=== PATIENT | male | born 1970 | race Caucasian/White ===

== ENCOUNTER 2017-08-03 10:23 | Inpatient (IN) | payer MEDICAID, OTHER ==
[~2017-08-03] VITALS: Ht 193 cm; Wt 63.1 kg
[2017-08-03] MEDS ORDERED: SODIUM CHLORIDE 0.9% 1,000 ML IV ONE (10:32)
[2017-08-03] MEDS ORDERED: ACETAMINOPHEN 500 MG TABLET ONE (10:54)
[2017-08-03] MEDS ORDERED: MORPHINE SULFATE 4 MG/ML, 1ML ONE ×2 (10:55→20:47)
[2017-08-03] MEDS ORDERED: MORPHINE SULFATE 4 MG/ML, 1ML IVPush PRN (11:00)
[2017-08-03] MEDS ORDERED: SODIUM CHLORIDE FLUSH 10ML SYR IVF ONE (11:00)
[2017-08-03] MEDS ORDERED: SODIUM CHLORIDE 0.9% 1,000ML IVBOLUS ONE (11:00)
[2017-08-03] MEDS ORDERED: ACETAMINOPHEN 500 MG TABLET PO ONE (11:00)
[2017-08-03 11:04] LABS: MEAN CORPUSCULAR HEMOGLOBIN 29.3 pg (27.5-34.5); MEAN CORPUSCULAR HGB CONC 33.8 g/dL (33.2-36.2); MEAN CORPUSCULAR VOLUME 86.7 fL (81-97); MEAN PLATELET VOLUME 7.4 fL (7.4-10.4); PLATELET COUNT 165 x10^3/uL (130-400); RED BLOOD COUNT 4.11 x10^6/uL (4.38-5.82); RED CELL DISTRIBUTION WIDTH 13.8 % (9.4-14.8)
[2017-08-03 11:12] LABS: INTERNATIONAL NORMALIZED RATIO 1.15 (0.93-1.1); PROTHROMBIN TIME 11.8 Seconds (9.6-11.5)
[2017-08-03 11:15] LABS: ALANINE AMINOTRANSFERASE 11 U/L (12-78); ALBUMIN 2.4 g/dL (3.4-5.0); ANION GAP 12 mmol/L (5-15); CALCIUM 7.3 mg/dL (8.5-10.1); CHLORIDE 106 mmol/L (98-107); CREATININE 0.96 mg/dL (0.7-1.3)
[2017-08-03 11:17] LABS: MD YES
[2017-08-03 11:18] LABS: ALKALINE PHOSPHATASE 66 U/L (45-117); BILIRUBIN,TOTAL 0.8 mg/dL (0.2-1.0); TOTAL PROTEIN 6.5 g/dL (6.4-8.2)
[2017-08-03 11:20] LABS: BAND#(MANUAL) 2.38 x10^3/uL; BANDS%(MANUAL) 25 % (0-7); LYMPH#(MANUAL) 0.29 x10^3/uL (1-3.4); LYMPHS% (MANUAL) 3 % (22-44); METAMYELOCYTES# (MANUAL) 0.29 x10^3/uL (0-0); METAMYELOCYTES% (MANUAL) 3 % (0-1); MONOS#(MANUAL) 0.29 x10^3/uL (0.3-2.7); MONOS% (MANUAL) 3 % (2-9); MYELOCYTES# (MANUAL) 0.19 x10^3/uL (0-0); MYELOCYTES% (MANUAL) 2 % (0-0); SEG#(MANUAL) 6.08 x10^3/uL (1.8-6.8); SEGS% (MANUAL) 64 % (42-75)
[2017-08-03 11:21] LABS: <PLATELET ESTIMATE> ADEQUATE; <PLT MORPHOLOGY> NORMAL PLT MORPH; <RBC MORPHOLOGY> NORMAL
[2017-08-03] MEDS ORDERED: AZITHROMYCIN 500 MG in SODIUM CHLORIDE 0.9% 250 ML IV ONE (12:00)
[2017-08-03] MEDS ORDERED: CEFTRIAXONE PMX 2GM/50ML 50 ML IV SCH (12:00)
[2017-08-03] MEDS ORDERED: CEFTRIAXONE 2 GM in DEXTROSE 5% 100 ML IVPB ONE (12:00)
[2017-08-03] MEDS ORDERED: CEFTRIAXONE PMX 1GM/50ML 50 ML ONE ×2 (12:01→12:28)
[2017-08-03 14:00] VITALS: BP 106/72
[2017-08-03] MEDS ORDERED: LABETALOL 5MG/ML, 20ML IVPush PRN (14:00)
[2017-08-03] MEDS ORDERED: VANCOMYCIN PER PHARMACY MC PRN (14:00)
[2017-08-03] MEDS ORDERED: GUAIFENESIN/DM 200-20MG, 10ML UDC PO PRN (14:00)
[2017-08-03] MEDS ORDERED: BISACODYL 10 MG SUPP PR PRN (14:00)
[2017-08-03] MEDS ORDERED: ENALAPRILAT 1.25 MG/ML, 2ML IVPush PRN (14:00)
[2017-08-03 14:01] VITALS: BP 113/84
[2017-08-03] MEDS ORDERED: PHARMACOKINETIC CONSULTATION MC ONE (14:30)
[2017-08-03] MEDS ORDERED: PHARMACOKINETIC MONITORING MC PRN (14:30)
[2017-08-03] MEDS: LACTATED RINGERS 1,000 ML IV SCH (16:04)
[2017-08-03] MEDS: VANCOMYCIN 1,300 MG in SODIUM CHLORIDE 0.9% 250 ML IV SCH (16:05)
[2017-08-03] MEDS: NICOTINE 7 MG/24 HR PATCH.TD24 TD SCH (16:06)
[2017-08-03] MEDS: ENOXAPARIN 40 MG/0.4 ML SQ SCH (16:06)
[2017-08-03] MEDS: HYDROcodone/APAP 5/325 TABLET PO PRN (17:20)
[2017-08-03 17:55] LABS: CULTURE INDICATED? NO; MICROSCOPIC AUTO
[2017-08-03 18:01] LABS: AMPHETAMINE SCREEN, URINE Positive (Negative); BARBITURATE SCREEN, URINE Negative (Negative); BENZODIAZEPINE SCREEN, URINE Negative (Negative); CANNABINOID SCREEN, URINE Positive (Negative); COCAINE SCREEN, URINE Negative (Negative); METHADONE SCREEN, URINE Negative (Negative); OPIATE SCREEN, URINE Positive (Negative)
[2017-08-03 19:14] VITALS: BP 120/78
[2017-08-03] MEDS: morphine SULFATE 10 MG/ML, 1ML IVPush PRN (21:00)
[2017-08-03] MEDS: CEFEPIME 2 GM in DEXTROSE 5% 100 ML IV SCH (21:01)
[2017-08-04] MEDS: LACTATED RINGERS 1,000 ML IV SCH (02:30)
[2017-08-04 02:49] VITALS: BP 125/85
[2017-08-04] MEDS ORDERED: MORPHINE SULFATE 4 MG/ML, 1ML ONE ×2 (02:54→06:13)
[2017-08-04] MEDS: morphine SULFATE 10 MG/ML, 1ML IVPush PRN ×2 (03:00→06:18)
[2017-08-04] MEDS: VANCOMYCIN 1,300 MG in SODIUM CHLORIDE 0.9% 250 ML IV SCH ×2 (03:00→13:54)
[2017-08-04] MEDS: CEFEPIME 2 GM in DEXTROSE 5% 100 ML IV SCH ×2 (04:57→12:37)
[2017-08-04 05:27] LABS: MEAN CORPUSCULAR HEMOGLOBIN 29.3 pg (27.5-34.5); MEAN CORPUSCULAR HGB CONC 33.4 g/dL (33.2-36.2); MEAN CORPUSCULAR VOLUME 87.8 fL (81-97); MEAN PLATELET VOLUME 7.8 fL (7.4-10.4); PLATELET COUNT 107 x10^3/uL (130-400); RED CELL DISTRIBUTION WIDTH 13.8 % (9.4-14.8)
[2017-08-04 05:32] LABS: CHLORIDE 105 mmol/L (98-107)
[2017-08-04 05:43] LABS: ALANINE AMINOTRANSFERASE 10 U/L (12-78); ALBUMIN 2.2 g/dL (3.4-5.0); ALKALINE PHOSPHATASE 101 U/L (45-117); ANION GAP 9 mmol/L (5-15); BILIRUBIN,TOTAL 0.6 mg/dL (0.2-1.0); CALCIUM 7.5 mg/dL (8.5-10.1); CREATININE 0.86 mg/dL (0.7-1.3); TOTAL PROTEIN 6.6 g/dL (6.4-8.2)
[2017-08-04 06:25] LABS: MD YES
[2017-08-04 06:33] LABS: <PLATELET ESTIMATE> DECREASED; <RBC MORPHOLOGY> NORMAL; BAND#(MANUAL) 1.38 x10^3/uL; BANDS%(MANUAL) 20 % (0-7); LYMPHS% (MANUAL) 16 % (22-44); METAMYELOCYTES# (MANUAL) 0.14 x10^3/uL (0-0); METAMYELOCYTES% (MANUAL) 2 % (0-1); REACTIVE LYMPHS # (MANUAL) 0.14 x10^3/uL (0-0); REACTIVE LYMPHS % (MANUAL) 2 % (0-0); SEG#(MANUAL) 4.14 x10^3/uL (1.8-6.8); SEGS% (MANUAL) 60 % (42-75)
[2017-08-04 06:34] LABS: <PLT MORPHOLOGY> NORMAL PLT MORPH
[2017-08-04] MEDS: D5%-0.9% NACL 1,000 ML IV SCH (07:30)
[2017-08-04 07:59] VITALS: BP 134/90
[2017-08-04] MEDS: MAGNESIUM OXIDE 400 MG TABLET PO SCH (08:58)
[2017-08-04] MEDS ORDERED: ALBUTEROL SULFATE 2.5 MG/3 ML ONE (09:34)
[2017-08-04] MEDS ORDERED: ALBUTEROL SULFATE 2.5 MG/3 ML NPPB PRN (10:00)
[2017-08-04 10:40] LABS: MICROSCOPIC AUTO
[2017-08-04 10:41] LABS: CULTURE INDICATED? NO
[2017-08-04 12:46] VITALS: BP 98/67
[2017-08-04] MEDS: ENOXAPARIN 40 MG/0.4 ML SQ SCH (13:54)
[2017-08-04] MEDS: SULFAMETH./TRIMETHOPRIM DS 800MG/160MG TABLET PO SCH (13:54)
[2017-08-04] MEDS: NICOTINE 7 MG/24 HR PATCH.TD24 TD SCH (13:55)
[2017-08-04] MEDS ORDERED: GLUCAGON 1 MG IM PRN (15:30)
[2017-08-04] MEDS ORDERED: DEXTROSE 50%, 50ML SYRINGE IVPush PRN (15:30)
[2017-08-04] MEDS ORDERED: DEXTROSE 4 GM TAB.CHEW PO PRN (15:30)
[2017-08-04] MEDS: ONDANSETRON ODT 4 MG PO PRN (16:19)
[2017-08-04] MEDS: HYDROcodone/APAP 5/325 TABLET PO PRN (16:19)
[2017-08-04] MEDS: ACETAMINOPHEN 325 MG TABLET PO PRN (16:52)
[2017-08-04 20:23] VITALS: BP 113/74
[2017-08-04] MEDS: SODIUM CHLORIDE FLUSH 10ML SYR IVF SCH (21:29)
[2017-08-04] MEDS: CEFTRIAXONE 2 GM in DEXTROSE 5% 100 ML IV SCH (21:29)
[2017-08-04] MEDS: TRAZODONE 50MG TABLET PO PRN (22:21)
[2017-08-05] MEDS: ACETAMINOPHEN 325 MG TABLET PO PRN ×3 (00:38→17:52)
[2017-08-05 01:05] VITALS: BP 121/84
[2017-08-05] MEDS: VANCOMYCIN 1,300 MG in SODIUM CHLORIDE 0.9% 250 ML IV SCH ×2 (03:00→15:00)
[2017-08-05 05:18] LABS: CHLORIDE 108 mmol/L (98-107)
[2017-08-05 05:36] LABS: ANION GAP 9 mmol/L (5-15); CALCIUM 8.6 mg/dL (8.5-10.1); CREATININE 0.84 mg/dL (0.7-1.3)
[2017-08-05 06:03] LABS: MEAN CORPUSCULAR HEMOGLOBIN 29.3 pg (27.5-34.5); MEAN CORPUSCULAR HGB CONC 33.7 g/dL (33.2-36.2); MEAN CORPUSCULAR VOLUME 86.9 fL (81-97); PLATELET COUNT 95 x10^3/uL (130-400); RED BLOOD COUNT 3.77 x10^6/uL (4.38-5.82); RED CELL DISTRIBUTION WIDTH 13.7 % (9.4-14.8)
[2017-08-05 06:51] LABS: BASOPHILS # (AUTO) 0.01 x10^3/uL (0-0.1); BASOPHILS % (AUTO) 0 % (0-1); EOSINOPHILS # (AUTO) 0.24 x10^3/uL (0-0.4); EOSINOPHILS % (AUTO) 4 % (1-7); LYMPHOCYTES # (AUTO) 0.78 x10^3/uL (1-3.4); LYMPHOCYTES % (AUTO) 12 % (22-44); MD SCAN; MONOCYTES % (AUTO) 3 % (2-9); NEUTROPHILS # (AUTO) 5.09 x10^3/uL (1.8-6.8); NEUTROPHILS % (AUTO) 81 % (42-75)
[2017-08-05] MEDS: SODIUM CHLORIDE FLUSH 10ML SYR IVF SCH ×2 (07:03→20:32)
[2017-08-05 07:42] VITALS: BP 101/62
[2017-08-05] MEDS: D5%-0.9% NACL 1,000 ML IV SCH (08:29)
[2017-08-05] MEDS: SULFAMETH./TRIMETHOPRIM DS 800MG/160MG TABLET PO SCH (08:29)
[2017-08-05] MEDS: MAGNESIUM OXIDE 400 MG TABLET PO SCH (08:29)
[2017-08-05] MEDS: POLYETHYLENE GLYCOL 17 GM PACKET PO PRN (09:51)
[2017-08-05] MEDS: HYDROcodone/APAP 5/325 TABLET PO PRN (12:56)
[2017-08-05] MEDS: NICOTINE 7 MG/24 HR PATCH.TD24 TD SCH (14:26)
[2017-08-05 15:27] LABS: HIT RESULT POSITIVE (NEGATIVE)
[2017-08-05 19:56] VITALS: BP 107/68
[2017-08-05] MEDS: CEFTRIAXONE 2 GM in DEXTROSE 5% 100 ML IV SCH (20:26)
[2017-08-06] MEDS ORDERED: VANCOMYCIN 1,400 MG in SODIUM CHLORIDE 0.9% 250 ML IV SCH (01:00)
[2017-08-06 01:04] VITALS: BP 142/101
[2017-08-06 01:23] VITALS: BP 135/88
[2017-08-06] MEDS: D5%-0.9% NACL 1,000 ML IV SCH (03:02)
[2017-08-06 05:39] LABS: BASOPHILS # (AUTO) 0.02 x10^3/uL (0-0.1); BASOPHILS % (AUTO) 0 % (0-1); EOSINOPHILS # (AUTO) 0.69 x10^3/uL (0-0.4); EOSINOPHILS % (AUTO) 11 % (1-7); LYMPHOCYTES % (AUTO) 20 % (22-44); MD NO; MEAN CORPUSCULAR HEMOGLOBIN 29.7 pg (27.5-34.5); MEAN CORPUSCULAR HGB CONC 33.8 g/dL (33.2-36.2); MEAN CORPUSCULAR VOLUME 87.9 fL (81-97); MEAN PLATELET VOLUME 8.1 fL (7.4-10.4); MONOCYTES # (AUTO) 0.38 x10^3/uL (0.2-0.8); MONOCYTES % (AUTO) 6 % (2-9); NEUTROPHILS # (AUTO) 4.18 x10^3/uL (1.8-6.8); NEUTROPHILS % (AUTO) 64 % (42-75); PLATELET COUNT 171 x10^3/uL (130-400); RED BLOOD COUNT 4.12 x10^6/uL (4.38-5.82); RED CELL DISTRIBUTION WIDTH 13.9 % (9.4-14.8)
[2017-08-06 05:44] LABS: CHLORIDE 105 mmol/L (98-107)
[2017-08-06 06:02] LABS: ALANINE AMINOTRANSFERASE 14 U/L (12-78); ALBUMIN 2.3 g/dL (3.4-5.0); ALKALINE PHOSPHATASE 62 U/L (45-117); ANION GAP 8 mmol/L (5-15); BILIRUBIN,TOTAL 0.5 mg/dL (0.2-1.0); CALCIUM 7.4 mg/dL (8.5-10.1); CREATININE 0.79 mg/dL (0.7-1.3)
[2017-08-06 06:47] VITALS: BP 113/79
[2017-08-06] MEDS ORDERED: SODIUM PHOSPHATE 20 MMOL in SODIUM CHLORIDE 0.9% 500 ML IV ONE (08:30)
[2017-08-06] MEDS: MAGNESIUM OXIDE 400 MG TABLET PO SCH (09:01)
[2017-08-06] MEDS: SULFAMETH./TRIMETHOPRIM DS 800MG/160MG TABLET PO SCH (09:01)
[2017-08-06] MEDS: SODIUM CHLORIDE FLUSH 10ML SYR IVF SCH ×2 (09:06→21:00)
[2017-08-06] MEDS: HYDROcodone/APAP 5/325 TABLET PO PRN ×2 (09:07→20:17)
[2017-08-06] MEDS: KETOROLAC 30 MG/1 ML IVPush PRN (10:17)
[2017-08-06 12:09] VITALS: BP 120/83
[2017-08-06] MEDS: NICOTINE 7 MG/24 HR PATCH.TD24 TD SCH (14:53)
[2017-08-06] MEDS: ONDANSETRON ODT 4 MG PO PRN (16:50)
[2017-08-06 20:16] VITALS: BP 123/85
[2017-08-06] MEDS: TRAZODONE 50MG TABLET PO PRN (20:17)
[2017-08-06] MEDS: DOCUSATE 100 MG CAPSULE PO PRN (20:17)
[2017-08-06] MEDS: PROMETHAZINE 25 MG/ML, 1ML IM PRN (20:17)
[2017-08-06] MEDS: CEFTRIAXONE 2 GM in DEXTROSE 5% 50 ML IV SCH (20:17)
[2017-08-07 01:39] VITALS: BP 110/76
[2017-08-07 07:36] VITALS: BP 109/72
[2017-08-07] MEDS: SODIUM CHLORIDE FLUSH 10ML SYR IVF SCH ×2 (08:51→21:40)
[2017-08-07] MEDS: HYDROcodone/APAP 5/325 TABLET PO PRN (08:52)
[2017-08-07] MEDS: SULFAMETH./TRIMETHOPRIM DS 800MG/160MG TABLET PO SCH (08:52)
[2017-08-07] MEDS: MAGNESIUM OXIDE 400 MG TABLET PO SCH (08:52)
[2017-08-07 13:10] VITALS: BP 137/95
[2017-08-07] MEDS: NICOTINE 7 MG/24 HR PATCH.TD24 TD SCH (14:00)
[2017-08-07] MEDS: KETOROLAC 30 MG/1 ML IVPush PRN (14:55)
[2017-08-07] MEDS: PROMETHAZINE 25 MG/ML, 1ML IM PRN (14:55)
[2017-08-07] MEDS: DOCUSATE 100 MG CAPSULE PO PRN (14:56)
[2017-08-07] MEDS: POLYETHYLENE GLYCOL 17 GM PACKET PO PRN (14:56)
[2017-08-07 20:00] VITALS: BP 120/87
[2017-08-07] MEDS: CEFTRIAXONE 2 GM in DEXTROSE 5% 50 ML IV SCH (21:40)
[2017-08-07] MEDS: ACETAMINOPHEN 325 MG TABLET PO PRN (21:40)
[2017-08-07] MEDS: TRAZODONE 50MG TABLET PO PRN (21:50)
[2017-08-08 02:00] VITALS: BP 118/85
[2017-08-08 07:29] VITALS: BP 106/73
[2017-08-08] MEDS: MAGNESIUM OXIDE 400 MG TABLET PO SCH (09:17)
[2017-08-08] MEDS: SULFAMETH./TRIMETHOPRIM DS 800MG/160MG TABLET PO SCH (09:17)
[2017-08-08] MEDS: SODIUM CHLORIDE FLUSH 10ML SYR IVF SCH ×2 (09:18→20:54)
[2017-08-08 13:04] VITALS: BP 120/86
[2017-08-08] MEDS: DOCUSATE 100 MG CAPSULE PO PRN (13:26)
[2017-08-08] MEDS: PROMETHAZINE 25 MG/ML, 1ML IM PRN (13:26)
[2017-08-08] MEDS: NICOTINE 7 MG/24 HR PATCH.TD24 TD SCH (13:28)
[2017-08-08] MEDS ORDERED: ACETAMINOPHEN 325 MG TABLET PO PRN (16:30)
[2017-08-08] MEDS ORDERED: HYDROcodone/APAP 5/325 TABLET PO PRN (18:00)
[2017-08-08 20:00] VITALS: BP 112/75
[2017-08-08] MEDS: CEFTRIAXONE 2 GM in DEXTROSE 5% 50 ML IV SCH (20:54)
[2017-08-09 02:00] VITALS: BP 116/80
[2017-08-09 06:50] VITALS: BP 109/77
[2017-08-09 07:15] VITALS: BP 118/81
[2017-08-09] MEDS: SODIUM CHLORIDE FLUSH 10ML SYR IVF SCH ×2 (09:08→20:28)
[2017-08-09] MEDS: MAGNESIUM OXIDE 400 MG TABLET PO SCH (09:08)
[2017-08-09] MEDS: SULFAMETH./TRIMETHOPRIM DS 800MG/160MG TABLET PO SCH (09:08)
[2017-08-09] MEDS ORDERED: HYDROcodone/APAP 5/325 TABLET PO PRN (09:30)
[2017-08-09] MEDS: NICOTINE 7 MG/24 HR PATCH.TD24 TD SCH (12:21)
[2017-08-09 13:25] VITALS: BP_SYST 118; BP_SYST 151; BP_DIAS 119; BP_DIAS 81
[2017-08-09] MEDS: CEFTRIAXONE 2 GM in DEXTROSE 5% 50 ML IV SCH (20:28)
[2017-08-09 20:39] VITALS: BP 121/80
[2017-08-10 01:58] VITALS: BP 111/82
[2017-08-10 07:26] VITALS: BP 107/76
[2017-08-10] MEDS: MAGNESIUM OXIDE 400 MG TABLET PO SCH (08:48)
[2017-08-10] MEDS: SULFAMETH./TRIMETHOPRIM DS 800MG/160MG TABLET PO SCH (08:48)
[2017-08-10] MEDS: SODIUM CHLORIDE FLUSH 10ML SYR IVF SCH ×2 (08:49→20:37)
[2017-08-10 13:31] VITALS: BP 97/68
[2017-08-10] MEDS: NICOTINE 7 MG/24 HR PATCH.TD24 TD SCH (15:10)
[2017-08-10] MEDS: CEFTRIAXONE 2 GM in DEXTROSE 5% 50 ML IV SCH (20:37)
[2017-08-10 22:28] VITALS: BP 122/86
[2017-08-11 03:43] VITALS: BP 100/65
[2017-08-11] MEDS: SODIUM CHLORIDE FLUSH 10ML SYR IVF SCH ×2 (08:01→20:54)
[2017-08-11] MEDS: MAGNESIUM OXIDE 400 MG TABLET PO SCH (08:01)
[2017-08-11] MEDS: SULFAMETH./TRIMETHOPRIM DS 800MG/160MG TABLET PO SCH (08:01)
[2017-08-11 09:10] VITALS: BP 109/73
[2017-08-11] MEDS: ONDANSETRON ODT 4 MG PO PRN (10:59)
[2017-08-11] MEDS: NICOTINE 7 MG/24 HR PATCH.TD24 TD SCH (14:00)
[2017-08-11 14:07] VITALS: BP 104/73
[2017-08-11 19:35] VITALS: BP 104/73
[2017-08-11] MEDS: CEFTRIAXONE 2 GM in DEXTROSE 5% 50 ML IV SCH (20:54)
[2017-08-12 07:56] VITALS: BP 108/78
[2017-08-12] MEDS: SODIUM CHLORIDE FLUSH 10ML SYR IVF SCH ×2 (09:14→20:02)
[2017-08-12] MEDS: SULFAMETH./TRIMETHOPRIM DS 800MG/160MG TABLET PO SCH (09:14)
[2017-08-12 14:56] VITALS: BP 110/73
[2017-08-12 18:28] VITALS: BP 114/77
[2017-08-12] MEDS: CEFTRIAXONE 2 GM in DEXTROSE 5% 50 ML IV SCH (20:01)
[2017-08-13 01:41] VITALS: BP 104/72
[2017-08-13 08:00] VITALS: BP 125/81
[2017-08-13] MEDS: SODIUM CHLORIDE FLUSH 10ML SYR IVF SCH ×2 (08:22→20:00)
[2017-08-13] MEDS: SULFAMETH./TRIMETHOPRIM DS 800MG/160MG TABLET PO SCH (08:22)
[2017-08-13 14:50] VITALS: BP 109/73
[2017-08-13 18:39] VITALS: BP 108/75
[2017-08-13] MEDS: CEFTRIAXONE 2 GM in DEXTROSE 5% 50 ML IV SCH (20:00)
[2017-08-14 00:52] VITALS: BP 127/82
[2017-08-14 06:40] VITALS: BP 106/75
[2017-08-14] MEDS: SODIUM CHLORIDE FLUSH 10ML SYR IVF SCH ×2 (08:28→21:10)
[2017-08-14] MEDS: SULFAMETH./TRIMETHOPRIM DS 800MG/160MG TABLET PO SCH (08:28)
[2017-08-14 12:59] VITALS: BP 119/82
[2017-08-14 19:07] VITALS: BP 105/74
[2017-08-14] MEDS: CEFTRIAXONE 2 GM in DEXTROSE 5% 50 ML IV SCH (21:09)
[2017-08-14] MEDS: TRAZODONE 50MG TABLET PO PRN (21:16)
[2017-08-15 02:00] VITALS: BP 117/76
[2017-08-15 08:47] VITALS: BP 107/74
[2017-08-15] MEDS: SODIUM CHLORIDE FLUSH 10ML SYR IVF SCH ×2 (09:21→20:57)
[2017-08-15] MEDS: SULFAMETH./TRIMETHOPRIM DS 800MG/160MG TABLET PO SCH (09:21)
[2017-08-15 14:12] VITALS: BP 118/82
[2017-08-15 20:01] VITALS: BP 111/77
[2017-08-15] MEDS: CEFTRIAXONE 2 GM in DEXTROSE 5% 50 ML IV SCH (20:57)
[2017-08-16 00:42] VITALS: BP 123/84
[2017-08-16] MEDS: SULFAMETH./TRIMETHOPRIM DS 800MG/160MG TABLET PO SCH (08:16)
[2017-08-16] MEDS: SODIUM CHLORIDE FLUSH 10ML SYR IVF SCH ×2 (08:16→21:00)
[2017-08-16 08:20] VITALS: BP 106/73
[2017-08-16 13:15] VITALS: BP 127/83
[2017-08-16 18:28] VITALS: BP 108/78
[2017-08-16] MEDS: CEFTRIAXONE 2 GM in DEXTROSE 5% 50 ML IV SCH (21:27)
[2017-08-17 02:29] VITALS: BP 144/91
[2017-08-17 07:00] VITALS: BP 132/92
[2017-08-17] MEDS: SULFAMETH./TRIMETHOPRIM DS 800MG/160MG TABLET PO SCH (09:40)
[2017-08-17] MEDS: SODIUM CHLORIDE FLUSH 10ML SYR IVF SCH (09:41)
[2017-08-17] MEDS ORDERED: SULF-169 PO (11:07)
[2017-08-17] MEDS ORDERED: SULF1TAB24 PO (11:12)
[2017-08-17] MEDS ORDERED: CEFTRIAXONE PMX 2GM/50ML 50 ML IV SCH (11:30)
[2017-08-17 12:26] VITALS: BP 128/88
== END 2017-08-17 14:07 | disposition home or self-care (01) | DRG 974 ==
LOC: ED 12:07 → EDIP 12:08 → ED 12:15 → 4WST 13:26 → 4EST 08-15 01:54 → DCLOUNGE 08-17 14:00
PROVIDERS: ADMIT Internal Medicine Pulmonary Disease; ATTEND Hospitalist
DX: B20 Human immunodeficiency virus [HIV] disease (principal); A40.3 Sepsis due to Streptococcus pneumoniae; J13 Pneumonia due to Streptococcus pneumoniae; J96.01 Acute respiratory failure with hypoxia; R65.20 Severe sepsis without septic shock; E43 Unspecified severe protein-calorie malnutrition; D75.82 Heparin induced thrombocytopenia (HIT); E87.2 Acidosis; E87.1 Hypo-osmolality and hyponatremia; M48.56XA Collapsed vertebra, not elsewhere classified, lumbar region, initial encounter for fracture; Z68.1 Body mass index [BMI] 19.9 or less, adult; E16.2 Hypoglycemia, unspecified; F10.10 Alcohol abuse, uncomplicated; F12.90 Cannabis use, unspecified, uncomplicated; F15.90 Other stimulant use, unspecified, uncomplicated; F17.200 Nicotine dependence, unspecified, uncomplicated; G25.3 Myoclonus; G89.29 Other chronic pain; I10 Essential (primary) hypertension; M47.816 Spondylosis without myelopathy or radiculopathy, lumbar region; M40.295 Other kyphosis, thoracolumbar region; Z66 Do not resuscitate; Z59.0 Homelessness; Z80.0 Family history of malignant neoplasm of digestive organs; Z85.048 Personal history of other malignant neoplasm of rectum, rectosigmoid junction, and anus; Z91.14 Patient's other noncompliance with medication regimen; Z91.19 Patient's noncompliance with other medical treatment and regimen; Z92.21 Personal history of antineoplastic chemotherapy; Z92.3 Personal history of irradiation
CPT/HCPCS: 36415; 36600; 71045; 72110; 72148; 80048; 80053; 80202; 80307; 81001; 82803; 82962; 83605; 83735; 84100; 84145; 85025; 85610; 85730; 86022; 86361; 87040; 87070; 87077; 87181; 87205; 87536; 93005; 93306; 94640; 96361; 96374; J0456; J0696; J1650; J1885; J2550; J3370; J7042; Q0162; J2270; J7030; J7040; J7050; J7120

== ENCOUNTER 2018-04-18 17:36 | Inpatient (IN) | payer MEDICAID ==
[~2018-04-18] VITALS: Ht 193 cm; Wt 63.0 kg
[~2018-04-18 17:36] MED LIST: AZIT600T4 PO; SULF-169 PO; SULF1TAB24 PO
[2018-04-18 18:01] LABS: BASOPHILS # (AUTO) 0.05 x10^3/uL (0-0.1); BASOPHILS % (AUTO) 0 % (0-1); EOSINOPHILS # (AUTO) 0.31 x10^3/uL (0-0.4); EOSINOPHILS % (AUTO) 2 % (1-7); LYMPHOCYTES # (AUTO) 2.14 x10^3/uL (1-3.4); LYMPHOCYTES % (AUTO) 17 % (22-44); MD NO; MEAN CORPUSCULAR HEMOGLOBIN 29.9 pg (27.5-34.5); MEAN CORPUSCULAR HGB CONC 34.1 g/dL (33.2-36.2); MEAN CORPUSCULAR VOLUME 87.8 fL (81-97); MEAN PLATELET VOLUME 7.3 fL (7.4-10.4); MONOCYTES # (AUTO) 0.55 x10^3/uL (0.2-0.8); MONOCYTES % (AUTO) 4 % (2-9); NEUTROPHILS # (AUTO) 9.51 x10^3/uL (1.8-6.8); NEUTROPHILS % (AUTO) 76 % (42-75); PLATELET COUNT 488 x10^3/uL (130-400); RED BLOOD COUNT 4.26 x10^6/uL (4.38-5.82); RED CELL DISTRIBUTION WIDTH 13.3 % (9.4-14.8)
[2018-04-18 18:10] LABS: ALANINE AMINOTRANSFERASE 8 U/L (12-78); ALBUMIN 2.3 g/dL (3.4-5.0); ANION GAP 8 mmol/L (5-15); CALCIUM 8.1 mg/dL (8.5-10.1); CHLORIDE 108 mmol/L (98-107); CREATININE 1.01 mg/dL (0.7-1.3)
[2018-04-18 18:13] LABS: ALKALINE PHOSPHATASE 75 U/L (45-117); BILIRUBIN,TOTAL 0.3 mg/dL (0.2-1.0); TOTAL PROTEIN 7.4 g/dL (6.4-8.2)
[2018-04-18] MEDS ORDERED: VANCOMYCIN PER PHARMACY MC ONE (18:30)
[2018-04-18] MEDS ORDERED: SODIUM CHLORIDE FLUSH 10ML SYR IVF ONE (18:30)
[2018-04-18] MEDS ORDERED: CEFAZOLIN PMX 1GM/50ML 50 ML IV ONE (18:30)
[2018-04-18] MEDS ORDERED: CEFAZOLIN PMX 1GM/50ML 50 ML ONE (18:36)
[2018-04-18] MEDS ORDERED: PHARMACOKINETIC CONSULTATION MC ONE ×2 (19:00→22:00)
[2018-04-18] MEDS ORDERED: VANCOMYCIN 1,300 MG in SODIUM CHLORIDE 0.9% 250 ML IV ONE (19:00)
[2018-04-18] MEDS ORDERED: HYDROcodone/APAP 5/325 TABLET ONE (20:08)
[2018-04-18] MEDS ORDERED: HYDROcodone/APAP 5/325 TABLET PO ONE (20:30)
[2018-04-18 20:41] VITALS: BP 112/77
[2018-04-18 21:24] VITALS: BP 112/77
[2018-04-18] MEDS ORDERED: ONDANSETRON 2MG/ML, 2ML IVPush PRN (21:30)
[2018-04-18] MEDS ORDERED: TEMAZEPAM 15 MG CAPSULE PO PRN (21:30)
[2018-04-18] MEDS ORDERED: hydrALAzine 20 MG/ML, 1ML IVPush PRN (21:30)
[2018-04-18] MEDS ORDERED: DOCUSATE 100 MG CAPSULE PO PRN (21:30)
[2018-04-18] MEDS ORDERED: VANCOMYCIN PER PHARMACY MC PRN (21:30)
[2018-04-18] MEDS ORDERED: LIDODERM 5% PATCH TD PRN (21:30)
[2018-04-18] MEDS ORDERED: PHARMACOKINETIC MONITORING MC PRN (22:00)
[2018-04-19] MEDS: CEFAZOLIN PMX 1GM/50ML 50 ML IV SCH ×3 (02:40→18:05)
[2018-04-19 02:41] VITALS: BP 99/68
[2018-04-19 08:42] VITALS: BP 125/90
[2018-04-19] MEDS: VANCOMYCIN 1,300 MG in SODIUM CHLORIDE 0.9% 250 ML IV SCH ×2 (08:52→19:39)
[2018-04-19] MEDS: ENOXAPARIN 40 MG/0.4 ML SQ SCH (08:52)
[2018-04-19 12:38] VITALS: BP 106/81
[2018-04-19] MEDS ORDERED: LIDOCAINE 1%-EPI 1:100K, 50ML INFIL ONE (15:30)
[2018-04-19] MEDS ORDERED: LIDOCAINE 1%-EPI 1:100K, 30ML ONE (16:07)
[2018-04-19] MEDS: HYDROcodone/APAP 5/325 TABLET PO PRN (19:39)
[2018-04-19 22:03] VITALS: BP 126/82
[2018-04-20] MEDS: CEFAZOLIN PMX 1GM/50ML 50 ML IV SCH ×3 (02:23→17:58)
[2018-04-20 03:11] VITALS: BP 114/81
[2018-04-20] MEDS: ENOXAPARIN 40 MG/0.4 ML SQ SCH (07:44)
[2018-04-20] MEDS: VANCOMYCIN 1,300 MG in SODIUM CHLORIDE 0.9% 250 ML IV SCH ×2 (08:08→20:02)
[2018-04-20 08:22] VITALS: BP 127/90
[2018-04-20 14:35] VITALS: BP 115/76
[2018-04-20] MEDS: EMTRICITABINE/TENOFOV ALAFENAM 200-25 TAB PO SCH (17:57)
[2018-04-20] MEDS: DOLUTEGRAVIR 50MG TAB PO SCH (17:57)
[2018-04-20 18:37] VITALS: BP 125/90
[2018-04-21 00:24] VITALS: BP 129/94
[2018-04-21] MEDS: CEFAZOLIN PMX 1GM/50ML 50 ML IV SCH ×3 (01:44→18:09)
[2018-04-21 07:15] VITALS: BP 137/95
[2018-04-21] MEDS: ENOXAPARIN 40 MG/0.4 ML SQ SCH (09:07)
[2018-04-21] MEDS: DOLUTEGRAVIR 50MG TAB PO SCH (09:08)
[2018-04-21] MEDS: VANCOMYCIN 1,300 MG in SODIUM CHLORIDE 0.9% 250 ML IV SCH ×2 (09:08→19:50)
[2018-04-21] MEDS: EMTRICITABINE/TENOFOV ALAFENAM 200-25 TAB PO SCH (09:08)
[2018-04-21 14:05] VITALS: BP 120/87
[2018-04-21 20:04] VITALS: BP 121/88
[2018-04-22 02:00] VITALS: BP 113/80
[2018-04-22] MEDS: CEFAZOLIN PMX 1GM/50ML 50 ML IV SCH ×3 (03:16→18:51)
[2018-04-22 06:16] LABS: CHLORIDE 109 mmol/L (98-107)
[2018-04-22 06:18] LABS: BASOPHILS # (AUTO) 0.05 x10^3/uL (0-0.1); BASOPHILS % (AUTO) 1 % (0-1); EOSINOPHILS # (AUTO) 0.43 x10^3/uL (0-0.4); EOSINOPHILS % (AUTO) 5 % (1-7); LYMPHOCYTES # (AUTO) 2.43 x10^3/uL (1-3.4); LYMPHOCYTES % (AUTO) 27 % (22-44); MD NO; MEAN CORPUSCULAR HEMOGLOBIN 29.9 pg (27.5-34.5); MEAN CORPUSCULAR HGB CONC 33.9 g/dL (33.2-36.2); MEAN PLATELET VOLUME 7.4 fL (7.4-10.4); MONOCYTES # (AUTO) 0.51 x10^3/uL (0.2-0.8); MONOCYTES % (AUTO) 6 % (2-9); NEUTROPHILS % (AUTO) 62 % (42-75); PLATELET COUNT 503 x10^3/uL (130-400); RED BLOOD COUNT 4.42 x10^6/uL (4.38-5.82); RED CELL DISTRIBUTION WIDTH 12.8 % (9.4-14.8)
[2018-04-22 06:23] LABS: ANION GAP 5 mmol/L (5-15); CALCIUM 7.9 mg/dL (8.5-10.1); CREATININE 0.89 mg/dL (0.7-1.3)
[2018-04-22] MEDS: VANCOMYCIN 1,300 MG in SODIUM CHLORIDE 0.9% 250 ML IV SCH ×2 (08:11→20:15)
[2018-04-22] MEDS: ENOXAPARIN 40 MG/0.4 ML SQ SCH (08:11)
[2018-04-22] MEDS: DOLUTEGRAVIR 50MG TAB PO SCH (08:12)
[2018-04-22] MEDS: EMTRICITABINE/TENOFOV ALAFENAM 200-25 TAB PO SCH (08:16)
[2018-04-22 09:11] VITALS: BP 126/90
[2018-04-22 16:00] VITALS: BP 128/91
[2018-04-22 19:10] VITALS: BP 132/94
[2018-04-23 01:12] VITALS: BP 127/86
[2018-04-23] MEDS: CEFAZOLIN PMX 1GM/50ML 50 ML IV SCH ×3 (03:13→18:29)
[2018-04-23 06:50] VITALS: BP 105/75
[2018-04-23] MEDS: VANCOMYCIN 1,300 MG in SODIUM CHLORIDE 0.9% 250 ML IV SCH ×2 (08:25→20:31)
[2018-04-23] MEDS: DOLUTEGRAVIR 50MG TAB PO SCH (08:25)
[2018-04-23] MEDS: ENOXAPARIN 40 MG/0.4 ML SQ SCH (08:25)
[2018-04-23] MEDS: EMTRICITABINE/TENOFOV ALAFENAM 200-25 TAB PO SCH (08:25)
[2018-04-23 12:46] VITALS: BP 117/82
[2018-04-23 14:39] LABS: HCT (SEDRATE) 37.6 % (39.2-51.8)
[2018-04-23 18:24] VITALS: BP 116/87
[2018-04-23] MEDS: HYDROcodone/APAP 5/325 TABLET PO PRN (18:28)
[2018-04-24 01:55] VITALS: BP 114/83
[2018-04-24] MEDS: CEFAZOLIN PMX 1GM/50ML 50 ML IV SCH ×2 (03:02→11:30)
[2018-04-24 06:41] VITALS: BP 105/74
[2018-04-24] MEDS: DOLUTEGRAVIR 50MG TAB PO SCH (08:58)
[2018-04-24] MEDS: ENOXAPARIN 40 MG/0.4 ML SQ SCH (08:58)
[2018-04-24] MEDS: EMTRICITABINE/TENOFOV ALAFENAM 200-25 TAB PO SCH (08:58)
[2018-04-24] MEDS: CEFAZOLIN PMX 2GM/50ML 50 ML IVPB SCH ×2 (12:00→19:56)
[2018-04-24 12:26] VITALS: BP 121/84
[2018-04-24 18:45] VITALS: BP 114/81
[2018-04-25 01:43] VITALS: BP 107/74
[2018-04-25] MEDS: CEFAZOLIN PMX 2GM/50ML 50 ML IVPB SCH ×3 (04:14→20:08)
[2018-04-25 07:35] VITALS: BP 98/66
[2018-04-25] MEDS: EMTRICITABINE/TENOFOV ALAFENAM 200-25 TAB PO SCH (08:47)
[2018-04-25] MEDS: ENOXAPARIN 40 MG/0.4 ML SQ SCH (08:47)
[2018-04-25] MEDS: DOLUTEGRAVIR 50MG TAB PO SCH (08:47)
[2018-04-25 13:32] VITALS: BP 119/87
[2018-04-25 19:40] VITALS: BP 118/76
[2018-04-26 00:30] VITALS: BP 109/76
[2018-04-26] MEDS: CEFAZOLIN PMX 2GM/50ML 50 ML IVPB SCH (03:47)
[2018-04-26 06:41] VITALS: BP 100/66
[2018-04-26] MEDS: ENOXAPARIN 40 MG/0.4 ML SQ SCH (08:20)
[2018-04-26] MEDS: EMTRICITABINE/TENOFOV ALAFENAM 200-25 TAB PO SCH (10:03)
[2018-04-26] MEDS: DOLUTEGRAVIR 50MG TAB PO SCH (10:03)
[2018-04-26] MEDS ORDERED: EMTR1TAB14 PO (13:12)
[2018-04-26] MEDS ORDERED: DOLU50TA PO (13:12)
[2018-04-26] MEDS ORDERED: CEPH-376 PO (13:12)
[2018-04-26 14:00] VITALS: BP 110/70
[2018-04-26] MEDS ORDERED: CEPHALEXIN 500 MG CAPSULE PO SCH (16:00)
== END 2018-04-26 14:50 | disposition home or self-care (01) | DRG 602 ==
LOC: ED 19:13 → EDIP 19:57 → 3NE 20:26 → DCLOUNGE 04-26 14:35
PROVIDERS: ADMIT Internal Medicine; ATTEND Family Medicine
PROC: 0HBLXZX Excision of Left Lower Leg Skin, External Approach, Diagnostic (ICD-10-PCS; principal; 2018-04-19)
DX: L03.115 Cellulitis of right lower limb (principal); E43 Unspecified severe protein-calorie malnutrition; B20 Human immunodeficiency virus [HIV] disease; Z68.1 Body mass index [BMI] 19.9 or less, adult; L03.116 Cellulitis of left lower limb; F12.90 Cannabis use, unspecified, uncomplicated; F17.210 Nicotine dependence, cigarettes, uncomplicated; G89.29 Other chronic pain; L30.9 Dermatitis, unspecified; L73.9 Follicular disorder, unspecified; Z79.899 Other long term (current) drug therapy; Z59.0 Homelessness; Z80.0 Family history of malignant neoplasm of digestive organs; Z85.048 Personal history of other malignant neoplasm of rectum, rectosigmoid junction, and anus; Z91.14 Patient's other noncompliance with medication regimen; Z92.21 Personal history of antineoplastic chemotherapy; Z92.3 Personal history of irradiation; Z88.2 Allergy status to sulfonamides
CPT/HCPCS: 36415; 80048; 80053; 80074; 80202; 82565; 83605; 83735; 84145; 85025; 85651; 86141; 86361; 86592; 87040; 87491; 87536; 87591; 88305; 96374; 96375; 99285; G0378; J0690; J1650; J3370; J3490; J7050

== ENCOUNTER 2018-06-19 08:03 | Emergency (ER) | payer MEDICAID ==
[~2018-06-19] VITALS: Ht 193 cm; Wt 65.3 kg
[~2018-06-19 08:03] MED LIST changes: +CEPH-376 PO; +DOLU50TA PO; +EMTR1TAB14 PO
--- NOTE | 2018-06-19 09:13 | NUR ---
PT HERE FOR REDNESS AND PAIN IN LEFT LOWER LATERAL LEG. RED AREA IS HOT TO TOUCH AND APPROXIMALLY THE SIZE OF A PALM. PT ALSO HAS MANY SORES OVER ENTIRE BODY. DENIES SEEING ANY BUGS. PT HAS HX OF HIV. NO OTHER COMPLAINT. AFEBRILE.
[2018-06-19] MEDS ORDERED: CLINDAMYCIN PMX 900MG/50ML 50 ML IVPB ONE (09:30)
[2018-06-19] MEDS ORDERED: SODIUM CHLORIDE FLUSH 10ML SYR IVF ONE (09:30)
--- NOTE | 2018-06-19 09:50 | NUR ---
IV ACCESS ESTABLISHED. SECOND SET OF BLOOD CULTURES DRAWN WITH IV START. LAB AT BEDSIDE.
[2018-06-19 10:03] LABS: MEAN CORPUSCULAR HEMOGLOBIN 29.5 pg (27.5-34.5); MEAN CORPUSCULAR HGB CONC 33.4 g/dL (33.2-36.2); MEAN CORPUSCULAR VOLUME 88.4 fL (81-97); MEAN PLATELET VOLUME 7.2 fL (7.4-10.4); PLATELET COUNT 334 x10^3/uL (130-400); RED BLOOD COUNT 4.37 x10^6/uL (4.38-5.82); RED CELL DISTRIBUTION WIDTH 14.6 % (9.4-14.8)
[2018-06-19] MEDS ORDERED: CLINDAMYCIN PMX 900MG/50ML 50 ML ONE (10:04)
[2018-06-19 10:20] LABS: ALANINE AMINOTRANSFERASE 8 U/L (12-78); ALBUMIN 2.7 g/dL (3.4-5.0); ANION GAP 8 mmol/L (5-15); CALCIUM 8.1 mg/dL (8.5-10.1); CHLORIDE 106 mmol/L (98-107); CREATININE 1.28 mg/dL (0.7-1.3)
[2018-06-19 10:22] LABS: ALKALINE PHOSPHATASE 80 U/L (45-117); BILIRUBIN,TOTAL 0.5 mg/dL (0.2-1.0); TOTAL PROTEIN 7.5 g/dL (6.4-8.2)
[2018-06-19 10:25] LABS: BASOPHILS # (AUTO) 0.01 x10^3/uL (0-0.1); BASOPHILS % (AUTO) 0 % (0-1); EOSINOPHILS # (AUTO) 0.06 x10^3/uL (0-0.4); EOSINOPHILS % (AUTO) 1 % (1-7); LYMPHOCYTES # (AUTO) 0.81 x10^3/uL (1-3.4); LYMPHOCYTES % (AUTO) 8 % (22-44); MD SCAN; MONOCYTES % (AUTO) 6 % (2-9); NEUTROPHILS # (AUTO) 8.97 x10^3/uL (1.8-6.8); NEUTROPHILS % (AUTO) 86 % (42-75)
[2018-06-19 10:56] VITALS: BP 108/77
--- NOTE | 2018-06-19 11:23 | NUR ---
DISCUSSION WITH MD REGARDING THE NEED FOR ANOTHER ANTIBIOTIC. MD DOES NOT BELIEVE PATIENT IS SEPTIC. PT TO BE DISCHARGED.
== END 2018-06-19 11:36 | disposition home or self-care (01) ==
LOC: ED 09:05
DX: L03.116 Cellulitis of left lower limb (principal); Z88.2 Allergy status to sulfonamides
CPT/HCPCS: 36415; 80053; 83605; 85025; 87040; 87147; 87181; 96365

== ENCOUNTER 2018-06-20 10:21 | Inpatient (IN) | payer MEDICAID ==
[~2018-06-20] VITALS: Ht 193 cm; Wt 63.0 kg
[2018-06-20 10:46] LABS: MEAN CORPUSCULAR HEMOGLOBIN 30.2 pg (27.5-34.5); MEAN CORPUSCULAR HGB CONC 34.2 g/dL (33.2-36.2); MEAN CORPUSCULAR VOLUME 88.5 fL (81-97); MEAN PLATELET VOLUME 7.1 fL (7.4-10.4); PLATELET COUNT 370 x10^3/uL (130-400); RED BLOOD COUNT 4.45 x10^6/uL (4.38-5.82); RED CELL DISTRIBUTION WIDTH 14.7 % (9.4-14.8)
[2018-06-20 10:58] LABS: ALANINE AMINOTRANSFERASE 9 U/L (12-78); ALBUMIN 2.8 g/dL (3.4-5.0); ANION GAP 6 mmol/L (5-15); CALCIUM 8.3 mg/dL (8.5-10.1); CHLORIDE 104 mmol/L (98-107); CREATININE 1.13 mg/dL (0.7-1.3)
[2018-06-20 11:00] LABS: ALKALINE PHOSPHATASE 82 U/L (45-117); BILIRUBIN,TOTAL 0.5 mg/dL (0.2-1.0); TOTAL PROTEIN 7.8 g/dL (6.4-8.2)
[2018-06-20 11:01] LABS: BASOPHILS # (AUTO) 0.04 x10^3/uL (0-0.1); BASOPHILS % (AUTO) 0 % (0-1); EOSINOPHILS # (AUTO) 0.17 x10^3/uL (0-0.4); EOSINOPHILS % (AUTO) 1 % (1-7); LYMPHOCYTES # (AUTO) 2.43 x10^3/uL (1-3.4); LYMPHOCYTES % (AUTO) 19 % (22-44); MD SCAN; MONOCYTES # (AUTO) 0.76 x10^3/uL (0.2-0.8); MONOCYTES % (AUTO) 6 % (2-9); NEUTROPHILS # (AUTO) 9.74 x10^3/uL (1.8-6.8); NEUTROPHILS % (AUTO) 74 % (42-75)
--- NOTE | 2018-06-20 11:01 | NUR ---
pt upright on gurney awake & comfortable, responds approp to staff, NAD, comfort measures provided, call light within reach
[2018-06-20] MEDS ORDERED: CEFAZOLIN PMX 1GM/50ML 50 ML IVPB ONE (11:30)
[2018-06-20] MEDS ORDERED: CEFTRIAXONE PMX 1GM/50ML 50 ML IV ONE (11:30)
[2018-06-20] MEDS ORDERED: CEFAZOLIN PMX 1GM/50ML 50 ML ONE (11:48)
[2018-06-20] MEDS ORDERED: CEFTRIAXONE PMX 1GM/50ML 50 ML ONE (11:48)
[2018-06-20] MEDS ORDERED: SODIUM CHLORIDE 0.9% 1,000 ML IV SCH (11:49)
--- NOTE | 2018-06-20 11:56 | NUR ---
pt remains upright on gurney awake & comfortable, responds approp to staff, NAD, comfort measures provided, call light within reach, seen by [facility]
[2018-06-20] MEDS: PLEASE ENTER HEIGHT AND WEIGHT MC SCH ×2 (12:00→20:00)
[2018-06-20] MEDS ORDERED: DIPHENHYDRAMINE 25 MG CAPSULE PO PRN (12:00)
[2018-06-20] MEDS ORDERED: ONDANSETRON 2MG/ML, 2ML IVPush PRN (12:00)
[2018-06-20] MEDS ORDERED: ONDANSETRON ODT 4 MG PO PRN (12:00)
[2018-06-20] MEDS ORDERED: SULFAMETH./TRIMETHOPRIM DS 800MG/160MG TABLET ONE ×2 (12:08→12:17)
[2018-06-20] MEDS ORDERED: ENOXAPARIN 40 MG/0.4 ML ONE (12:08)
[2018-06-20] MEDS: ENOXAPARIN 40 MG/0.4 ML SQ SCH (12:13)
[2018-06-20] MEDS: AMPICILLIN/SULBACTAM 3 GM in SODIUM CHLORIDE 0.9% 100 ML IV SCH ×2 (12:14→20:30)
[2018-06-20] MEDS: SULFAMETH./TRIMETHOPRIM DS 800MG/160MG TABLET PO SCH (12:19)
--- NOTE | 2018-06-20 12:50 | NUR ---
REPORT CALLED TO AIMEE FONTAINE
[2018-06-20 16:07] VITALS: BP 100/67
[2018-06-20] MEDS: DOLUTEGRAVIR 50MG TAB PO SCH (16:10)
[2018-06-20] MEDS: EMTRICITABINE/TENOFOV ALAFENAM 200-25 TAB PO SCH (16:11)
[2018-06-20] MEDS: ACETAMINOPHEN 325 MG TABLET PO PRN ×2 (16:11→22:58)
[2018-06-20 18:13] VITALS: BP 95/61
[2018-06-20 22:55] VITALS: BP 100/67
[2018-06-20] MEDS ORDERED: ACETAMINOPHEN 650 MG SUPP PR PRN (23:00)
[2018-06-21 00:57] VITALS: BP 95/65
[2018-06-21] MEDS: AMPICILLIN/SULBACTAM 3 GM in SODIUM CHLORIDE 0.9% 100 ML IV SCH ×3 (03:58→20:32)
[2018-06-21] MEDS: PLEASE ENTER HEIGHT AND WEIGHT MC SCH (04:00)
[2018-06-21 04:02] VITALS: BP 117/67
[2018-06-21 05:15] LABS: ANION GAP 22 mmol/L (5-15); CHLORIDE 113 mmol/L (98-107)
[2018-06-21 05:18] LABS: BASOPHILS # (AUTO) 0.02 x10^3/uL (0-0.1); BASOPHILS % (AUTO) 0 % (0-1); EOSINOPHILS # (AUTO) 0.08 x10^3/uL (0-0.4); EOSINOPHILS % (AUTO) 1 % (1-7); LYMPHOCYTES # (AUTO) 1.58 x10^3/uL (1-3.4); LYMPHOCYTES % (AUTO) 17 % (22-44); MD NO; MEAN CORPUSCULAR HEMOGLOBIN 29.5 pg (27.5-34.5); MEAN CORPUSCULAR HGB CONC 33.3 g/dL (33.2-36.2); MEAN CORPUSCULAR VOLUME 88.7 fL (81-97); MEAN PLATELET VOLUME 6.9 fL (7.4-10.4); MONOCYTES # (AUTO) 0.46 x10^3/uL (0.2-0.8); MONOCYTES % (AUTO) 5 % (2-9); NEUTROPHILS # (AUTO) 7.05 x10^3/uL (1.8-6.8); NEUTROPHILS % (AUTO) 77 % (42-75); PLATELET COUNT 301 x10^3/uL (130-400); RED BLOOD COUNT 3.37 x10^6/uL (4.38-5.82); RED CELL DISTRIBUTION WIDTH 14.6 % (9.4-14.8)
[2018-06-21 05:26] LABS: CALCIUM 5.2 mg/dL (8.5-10.1)
[2018-06-21 05:46] VITALS: BP 109/70
[2018-06-21] MEDS ORDERED: PHARMACOKINETIC MONITORING MC PRN (07:00)
[2018-06-21] MEDS ORDERED: VANCOMYCIN PER PHARMACY MC PRN (07:00)
[2018-06-21 07:42] VITALS: BP 102/67
[2018-06-21 07:47] LABS: ALBUMIN 2.2 g/dL (3.4-5.0); ANION GAP 8 mmol/L (5-15); CALCIUM 7.6 mg/dL (8.5-10.1); CHLORIDE 109 mmol/L (98-107)
[2018-06-21 07:50] LABS: ALANINE AMINOTRANSFERASE 6 U/L (12-78); ALKALINE PHOSPHATASE 66 U/L (45-117); BILIRUBIN,TOTAL 0.4 mg/dL (0.2-1.0); CREATININE 1.02 mg/dL (0.7-1.3); TOTAL PROTEIN 6.5 g/dL (6.4-8.2)
[2018-06-21] MEDS: SULFAMETH./TRIMETHOPRIM DS 800MG/160MG TABLET PO SCH (09:00)
[2018-06-21] MEDS: VANCOMYCIN 1,400 MG in SODIUM CHLORIDE 0.9% 250 ML IV SCH ×2 (09:10→21:19)
[2018-06-21] MEDS: EMTRICITABINE/TENOFOV ALAFENAM 200-25 TAB PO SCH (09:12)
[2018-06-21] MEDS: DOLUTEGRAVIR 50MG TAB PO SCH (09:12)
[2018-06-21] MEDS: ENOXAPARIN 40 MG/0.4 ML SQ SCH (13:01)
[2018-06-21] MEDS: SODIUM CHLORIDE 0.9% 1,000 ML IV SCH (16:48)
[2018-06-21 16:56] VITALS: BP 110/74
[2018-06-21 20:04] VITALS: BP 107/73
[2018-06-21 20:08] LABS: MICROSCOPIC NOT IND
[2018-06-21] MEDS: ACETAMINOPHEN 325 MG TABLET PO PRN (22:21)
[2018-06-22] MEDS: SODIUM CHLORIDE 0.9% 1,000 ML IV SCH ×3 (00:03→16:49)
[2018-06-22 01:17] VITALS: BP 105/75
[2018-06-22] MEDS: AMPICILLIN/SULBACTAM 3 GM in SODIUM CHLORIDE 0.9% 100 ML IV SCH ×3 (04:30→20:13)
[2018-06-22 05:44] LABS: BASOPHILS # (AUTO) 0.03 x10^3/uL (0-0.1); BASOPHILS % (AUTO) 0 % (0-1); EOSINOPHILS # (AUTO) 0.41 x10^3/uL (0-0.4); EOSINOPHILS % (AUTO) 6 % (1-7); LYMPHOCYTES # (AUTO) 1.63 x10^3/uL (1-3.4); LYMPHOCYTES % (AUTO) 23 % (22-44); MD NO; MEAN CORPUSCULAR HEMOGLOBIN 29.6 pg (27.5-34.5); MEAN CORPUSCULAR HGB CONC 33.1 g/dL (33.2-36.2); MEAN CORPUSCULAR VOLUME 89.5 fL (81-97); MEAN PLATELET VOLUME 6.9 fL (7.4-10.4); MONOCYTES # (AUTO) 0.51 x10^3/uL (0.2-0.8); MONOCYTES % (AUTO) 7 % (2-9); NEUTROPHILS # (AUTO) 4.61 x10^3/uL (1.8-6.8); NEUTROPHILS % (AUTO) 64 % (42-75); PLATELET COUNT 334 x10^3/uL (130-400); RED BLOOD COUNT 3.96 x10^6/uL (4.38-5.82); RED CELL DISTRIBUTION WIDTH 14.8 % (9.4-14.8)
[2018-06-22 05:46] LABS: CHLORIDE 109 mmol/L (98-107)
[2018-06-22 05:57] LABS: ALBUMIN 2.1 g/dL (3.4-5.0); ALKALINE PHOSPHATASE 61 U/L (45-117); ANION GAP 7 mmol/L (5-15); BILIRUBIN,TOTAL 0.3 mg/dL (0.2-1.0); CALCIUM 7.6 mg/dL (8.5-10.1); CREATININE 0.81 mg/dL (0.7-1.3); TOTAL PROTEIN 6.3 g/dL (6.4-8.2)
[2018-06-22 05:58] LABS: ALANINE AMINOTRANSFERASE < 6 U/L (12-78)
[2018-06-22] MEDS ORDERED: DOXYCYCLINE MC SCH (06:30)
[2018-06-22] MEDS ORDERED: AZITHROMYCIN MC SCH (06:30)
[2018-06-22 08:04] VITALS: BP 114/76
[2018-06-22] MEDS: VANCOMYCIN 1,400 MG in SODIUM CHLORIDE 0.9% 250 ML IV SCH (09:33)
[2018-06-22] MEDS: DOXYCYCLINE 100MG TABLET PO SCH ×2 (09:33→21:23)
[2018-06-22] MEDS: ENOXAPARIN 40 MG/0.4 ML SQ SCH (09:33)
[2018-06-22] MEDS: SULFAMETH./TRIMETHOPRIM DS 800MG/160MG TABLET PO SCH (09:33)
[2018-06-22] MEDS: EMTRICITABINE/TENOFOV ALAFENAM 200-25 TAB PO SCH (09:33)
[2018-06-22] MEDS: DOLUTEGRAVIR 50MG TAB PO SCH (09:33)
[2018-06-22] MEDS: NEOSPORIN OINT, 15GM TP SCH (12:56)
[2018-06-22 15:28] VITALS: BP 126/87
[2018-06-22 19:20] VITALS: BP 101/67
[2018-06-22] MEDS: ACETAMINOPHEN 325 MG TABLET PO PRN (21:30)
[2018-06-23] MEDS: AMPICILLIN/SULBACTAM 3 GM in SODIUM CHLORIDE 0.9% 100 ML IV SCH (04:11)
[2018-06-23 05:45] LABS: BASOPHILS # (AUTO) 0.03 x10^3/uL (0-0.1); BASOPHILS % (AUTO) 0 % (0-1); EOSINOPHILS # (AUTO) 0.43 x10^3/uL (0-0.4); EOSINOPHILS % (AUTO) 7 % (1-7); LYMPHOCYTES # (AUTO) 1.97 x10^3/uL (1-3.4); LYMPHOCYTES % (AUTO) 31 % (22-44); MD NO; MEAN CORPUSCULAR HEMOGLOBIN 30.1 pg (27.5-34.5); MEAN CORPUSCULAR VOLUME 88.5 fL (81-97); MONOCYTES # (AUTO) 0.46 x10^3/uL (0.2-0.8); MONOCYTES % (AUTO) 7 % (2-9); NEUTROPHILS # (AUTO) 3.51 x10^3/uL (1.8-6.8); NEUTROPHILS % (AUTO) 55 % (42-75); PLATELET COUNT 406 x10^3/uL (130-400); RED BLOOD COUNT 4.18 x10^6/uL (4.38-5.82); RED CELL DISTRIBUTION WIDTH 14.6 % (9.4-14.8)
[2018-06-23] MEDS: DOLUTEGRAVIR 50MG TAB PO SCH (08:50)
[2018-06-23] MEDS: SULFAMETH./TRIMETHOPRIM DS 800MG/160MG TABLET PO SCH (08:50)
[2018-06-23] MEDS: ENOXAPARIN 40 MG/0.4 ML SQ SCH (08:50)
[2018-06-23] MEDS: DOXYCYCLINE 100MG TABLET PO SCH (08:50)
[2018-06-23] MEDS: EMTRICITABINE/TENOFOV ALAFENAM 200-25 TAB PO SCH (08:50)
[2018-06-23] MEDS: NEOSPORIN OINT, 15GM TP SCH (08:50)
[2018-06-23] MEDS ORDERED: AMOXICILLIN/CLAV 875-125MG TABLET PO SCH (09:00)
[2018-06-23 09:25] VITALS: BP 126/88
[2018-06-23] MEDS ORDERED: SODIUM CHLORIDE 0.9% 1,000 ML IV SCH (11:49)
[2018-06-23 13:05] VITALS: BP 136/63
[2018-06-23] MEDS ORDERED: AMOX1TAB12 PO (13:33)
[2018-06-25] MEDS ORDERED: AZITHROMYCIN 600 MG TABLET PO SCH (09:00)
== END 2018-06-23 17:25 | disposition home or self-care (01) | DRG 602 ==
LOC: ED 10:52 → EDIP 11:09 → 3NE 11:52
PROVIDERS: ADMIT Internal Medicine; ATTEND Internal Medicine
DX: L03.116 Cellulitis of left lower limb (principal); J15.4 Pneumonia due to other streptococci; E87.2 Acidosis; R78.81 Bacteremia; L29.9 Pruritus, unspecified; M48.061 Spinal stenosis, lumbar region without neurogenic claudication; Z85.048 Personal history of other malignant neoplasm of rectum, rectosigmoid junction, and anus; Z91.14 Patient's other noncompliance with medication regimen; Z88.2 Allergy status to sulfonamides
CPT/HCPCS: 36415; 71045; 80048; 80053; 81003; 83615; 85025; 87040; 99285; G0378; J0295; J0696; J1650; J3370; J7030; J7050

== ENCOUNTER 2019-06-28 18:26 | Inpatient (IN) | payer MEDICAID ==
[~2019-06-28] VITALS: Ht 193 cm; Wt 81.6 kg
[2019-06-28] MEDS: AMIODARONE 450 MG in DEXTROSE 5% 241 ML IV PRN ×2 (18:15→18:45)
[2019-06-28] MEDS: DOPAMINE/D5W PMX 250 ML IV PRN ×2 (18:20→18:45)
[~2019-06-28 18:26] MED LIST changes: +AMOX1TAB12 PO
--- NOTE | 2019-06-28 18:36 | NUR ---
PT ARRIVED AT 1809. 49 Y/O MALE BIB AMBULANCE WITH C/O UNCONSCIOUS. PER REPORT PT WAS FOUND DOWN WITH A WARM METH PIPE NEXT TO PT. PT IS INTUBATED. 7.5 24 AT THE LIP. CODE CARDIAC WAS CALLED AT 1817. IO ESTABLISHED CISO, PIV RIGHT AC ESTABLISHED CISO. PER REPORT PT WAS FOUND DOWN AT [facility] [place] UNK DOWN TIME. WARM METH FOUND NEXT TO PATIENT. CISO PT WAS GIVEN A TOTAL OF 3 ROUNDS OF EPI AND 300 MG AMIO.
[2019-06-28 18:53] LABS: MEAN CORPUSCULAR HEMOGLOBIN 28.2 pg (27.5-34.5); MEAN CORPUSCULAR HGB CONC 32.5 g/dL (33.2-36.2); MEAN CORPUSCULAR VOLUME 86.7 fL (81-97); MEAN PLATELET VOLUME 8.2 fL (7.4-10.4); PLATELET COUNT 248 x10^3/uL (130-400); RED BLOOD COUNT 4.02 x10^6/uL (4.38-5.82); RED CELL DISTRIBUTION WIDTH 14.4 % (9.4-14.8)
[2019-06-28] MEDS ORDERED: MIDAZOLAM 1 MG/ML, 5ML ONE (18:54)
[2019-06-28] MEDS ORDERED: TICAGRELOR 90 MG TABLET ONE (18:54)
[2019-06-28] MEDS ORDERED: FENTANYL PF 100 MCG/2ML ONE (18:54)
[2019-06-28] MEDS ORDERED: BIVALIRUDIN 250 MG ONE (18:55)
[2019-06-28] MEDS ORDERED: LIDOCAINE 2%, 20ML ONE (18:55)
[2019-06-28] MEDS ORDERED: HEPARIN 1,000 UNITS/ML, 10ML ONE (18:55)
[2019-06-28] MEDS ORDERED: VERAPAMIL 2.5 MG/ML, 2ML ONE (18:55)
[2019-06-28] MEDS ORDERED: FILTER 0.22 MICRON IV PRN (19:00)
[2019-06-28] MEDS ORDERED: SODIUM CHLORIDE FLUSH 10ML SYR IVF ONE (19:00)
[2019-06-28 19:03] LABS: INTERNATIONAL NORMALIZED RATIO 1.07 (0.93-1.1); PROTHROMBIN TIME 11.4 Seconds (9.6-11.5)
[2019-06-28 19:10] LABS: ALBUMIN 2.3 g/dL (3.4-5.0); ANION GAP 11 mmol/L (5-15); CALCIUM 8.2 mg/dL (8.5-10.1); CHLORIDE 110 mmol/L (98-107)
--- NOTE | 2019-06-28 19:12 | NUR ---
Stevan soriano in ED - 06/28/19 at 1913 by CARLO LATE ENTRY FOR 1849 PT WAS TRANSFERRED TO [employer]CHNIC[employer]. PT LEFT WITH ALL PERSONAL BELONGINGS.
--- NOTE | 2019-06-28 19:13 | NUR ---
LATE ENTRY FOR 185. PT TRANSFERRED TO [employer]. PT LEFT WITH ALL PERSONAL BELONGINGS.
[2019-06-28 19:15] LABS: MD YES
[2019-06-28] MEDS ORDERED: NOREPINEPHRINE 8 MG in SODIUM CHLORIDE 0.9% 242 ML IV PRN ×3 (19:15→21:51)
[2019-06-28 19:16] LABS: ALANINE AMINOTRANSFERASE 32 U/L (12-78); ALKALINE PHOSPHATASE 98 U/L (45-117); BILIRUBIN,TOTAL 0.2 mg/dL (0.2-1.0); CREATININE 1.35 mg/dL (0.7-1.3)
[2019-06-28 19:21] LABS: <PLATELET ESTIMATE> ADEQUATE; <RBC MORPHOLOGY> NORMAL; LYMPH#(MANUAL) 7.37 x10^3/uL (1-3.4); LYMPHS% (MANUAL) 58 % (22-44); METAMYELOCYTES# (MANUAL) 0.13 x10^3/uL (0-0); METAMYELOCYTES% (MANUAL) 1 % (0-1); MONOS#(MANUAL) 0.64 x10^3/uL (0.3-2.7); MONOS% (MANUAL) 5 % (2-9); MYELOCYTES# (MANUAL) 0.13 x10^3/uL (0-0); MYELOCYTES% (MANUAL) 1 % (0-0); SEG#(MANUAL) 4.45 x10^3/uL (1.8-6.8); SEGS% (MANUAL) 35 % (42-75)
[2019-06-28 19:24] LABS: <PLT MORPHOLOGY> NORMAL PLT MORPH
[2019-06-28] MEDS ORDERED: SODIUM BICARBONATE 1 MEQ/ML, 50ML VIAL ONE (19:47)
[2019-06-28] MEDS ORDERED: DOPAMINE/D5W PMX 400 MG/250 ML ONE (19:51)
[2019-06-28] MEDS ORDERED: AMIODARONE 50 MG/ML, 3ML ONE (19:51)
[2019-06-28] MEDS ORDERED: NOREPINEPHRINE 1 MG/ML, 4ML ONE (19:51)
[2019-06-28] MEDS ORDERED: BIVALIRUDIN 500 MG in DEXTROSE 5% 100 ML IV SCH (21:00)
[2019-06-28] MEDS ORDERED: BIVALIRUDIN 250 MG in DEXTROSE 5% 100 ML IV SCH (21:00)
[2019-06-28 21:32] LABS: AMPHETAMINE SCREEN, URINE Positive (Negative); BARBITURATE SCREEN, URINE Negative (Negative); BENZODIAZEPINE SCREEN, URINE Negative (Negative); CANNABINOID SCREEN, URINE Positive (Negative); COCAINE SCREEN, URINE Negative (Negative); METHADONE SCREEN, URINE Negative (Negative); OPIATE SCREEN, URINE Negative (Negative)
[2019-06-28] MEDS ORDERED: PROPOFOL 100 ML IV ONE (21:36)
[2019-06-28] MEDS ORDERED: PROPOFOL 100 ML IV PRN ×2 (21:47→22:00)
[2019-06-28] MEDS ORDERED: SODIUM PHOSPHATE 20 MMOL in SODIUM CHLORIDE 0.9% 250 ML IVPB PRN ×2 (21:51→22:30)
[2019-06-28] MEDS: PROPOFOL 100 ML IV PRN (21:59)
[2019-06-28] MEDS ORDERED: LIDOCAINE-MPF 1%, 2ML ENDO PRN (22:00)
[2019-06-28] MEDS ORDERED: DEXTROSE 4 GM TAB.CHEW PO PRN (22:00)
[2019-06-28] MEDS ORDERED: FENTANYL PF 1,000 MCG in SODIUM CHLORIDE 0.9% 80 ML IV PRN (22:00)
[2019-06-28] MEDS ORDERED: SODIUM CHLORIDE 0.9% 1,000 ML IV SCH (22:00)
[2019-06-28] MEDS ORDERED: SENNA 176 MG/5 ML ORAL SOL NG PRN (22:00)
[2019-06-28] MEDS ORDERED: LACTULOSE 20 GM/30 ML UDC NG PRN (22:00)
[2019-06-28] MEDS ORDERED: SENNA/DOCUSATE TABLET NG PRN (22:00)
[2019-06-28] MEDS ORDERED: BISACODYL 10 MG SUPP PR PRN (22:00)
[2019-06-28] MEDS ORDERED: GLUCAGON 1 MG IM PRN (22:00)
[2019-06-28] MEDS: KSCALE TO 4.0 IV SCH (22:00)
[2019-06-28] MEDS: ALBUTEROL/IPRATROPIUM 2.5MG/0.5MG, 3 ML INLINE SCH (22:00)
[2019-06-28] MEDS ORDERED: PHARMACY MAY ADJ FOR RENAL FX MC SCH (22:00)
[2019-06-28] MEDS ORDERED: SODIUM PHOSPHATE 20 MMOL in SODIUM CHLORIDE 0.9% 500 ML IV ONE (22:30)
[2019-06-28 22:49] LABS: BASOPHILS # (AUTO) 0.01 x10^3/uL (0-0.1); BASOPHILS % (AUTO) 0 % (0-1); EOSINOPHILS % (AUTO) 0 % (1-7); LYMPHOCYTES # (AUTO) 1.07 x10^3/uL (1-3.4); LYMPHOCYTES % (AUTO) 7 % (22-44); MD NO; MEAN CORPUSCULAR HEMOGLOBIN 28.2 pg (27.5-34.5); MEAN CORPUSCULAR HGB CONC 32.9 g/dL (33.2-36.2); MEAN CORPUSCULAR VOLUME 85.8 fL (81-97); MEAN PLATELET VOLUME 7.5 fL (7.4-10.4); MONOCYTES # (AUTO) 0.75 x10^3/uL (0.2-0.8); MONOCYTES % (AUTO) 5 % (2-9); NEUTROPHILS % (AUTO) 88 % (42-75); PLATELET COUNT 295 x10^3/uL (130-400); RED BLOOD COUNT 4.67 x10^6/uL (4.38-5.82); RED CELL DISTRIBUTION WIDTH 14.3 % (9.4-14.8)
[2019-06-28 22:50] LABS: ANION GAP 9 mmol/L (5-15); CALCIUM 7.6 mg/dL (8.5-10.1); CHLORIDE 110 mmol/L (98-107); CREATININE 1.48 mg/dL (0.7-1.3); TRIGLYCERIDES 57 mg/dL (50-200)
[2019-06-28] MEDS ORDERED: TRIMETHOPRIM IV SCH ×2 (23:00)
[2019-06-28] MEDS ORDERED: SODIUM CHLORIDE IV SCH ×2 (23:00)
[2019-06-28] MEDS ORDERED: SULFAMETH IV SCH ×2 (23:00)
[2019-06-28 23:05] LABS: INTERNATIONAL NORMALIZED RATIO 1.34 (0.93-1.1); PROTHROMBIN TIME 14.2 Seconds (9.6-11.5)
[2019-06-28] MEDS: FENTANYL PF 100 MCG/2ML IVPush PRN (23:10)
[2019-06-28] MEDS: VECURONIUM 10 MG IVPush PRN (23:10)
[2019-06-28] MEDS: CEFTAROLINE 600 MG in SODIUM CHLORIDE 0.9% 100 ML IV SCH (23:56)
[2019-06-29] MEDS: SULFAMETH IV SCH ×4 (00:30→18:20)
[2019-06-29] MEDS: TRIMETHOPRIM IV SCH ×4 (00:30→18:20)
[2019-06-29] MEDS: SODIUM CHLORIDE IV SCH ×4 (00:30→18:20)
[2019-06-29] MEDS: FAMOTIDINE 20 MG/2 ML IV SCH ×2 (01:04→13:02)
[2019-06-29] MEDS: methylPREDNISolone SOD SUCC 40 MG/ML IVPush SCH ×2 (01:04→09:14)
[2019-06-29] MEDS: BUSPIRONE 10 MG TABLET NG SCH ×3 (01:04→17:25)
[2019-06-29] MEDS: ARTIFICIAL TEARS OINT 3.5 GM EACHEYE SCH ×3 (01:37→17:25)
[2019-06-29] MEDS: KSCALE TO 4.0 IV SCH ×6 (02:00→22:41)
[2019-06-29] MEDS ORDERED: REGULAR INSULIN 100 UNITS in SODIUM CHLORIDE 0.9% 99 ML IV PRN (02:00)
[2019-06-29] MEDS: ALBUTEROL/IPRATROPIUM 2.5MG/0.5MG, 3 ML INLINE SCH ×6 (02:10→22:10)
[2019-06-29] MEDS ORDERED: SODIUM BICARB 8.4%, 50ML SYRINGE IVPush ONE ×4 (02:30→16:30)
[2019-06-29] MEDS ORDERED: INSULIN REGULAR 100 UNITS/ML, 3ML VIAL SQ-INSULIN ONE (02:30)
[2019-06-29] MEDS: PROPOFOL 100 ML IV PRN ×2 (02:53→09:02)
[2019-06-29] MEDS: NOREPINEPHRINE 8 MG in SODIUM CHLORIDE 0.9% 242 ML IV PRN ×2 (03:23→12:23)
[2019-06-29] MEDS: AMIODARONE 450 MG in DEXTROSE 5% 241 ML IV PRN (03:54)
[2019-06-29 04:00] VITALS: BP 101/68
[2019-06-29 04:07] LABS: MICROSCOPIC INDICATED
[2019-06-29 04:15] LABS: CULTURE INDICATED? YES
[2019-06-29 05:45] LABS: MEAN CORPUSCULAR HEMOGLOBIN 28.1 pg (27.5-34.5); MEAN CORPUSCULAR HGB CONC 32.6 g/dL (33.2-36.2); MEAN CORPUSCULAR VOLUME 86.2 fL (81-97); MEAN PLATELET VOLUME 7.4 fL (7.4-10.4); PLATELET COUNT 324 x10^3/uL (130-400); RED BLOOD COUNT 4.44 x10^6/uL (4.38-5.82); RED CELL DISTRIBUTION WIDTH 13.8 % (9.4-14.8)
[2019-06-29 06:01] LABS: CHLORIDE 115 mmol/L (98-107)
[2019-06-29 06:06] LABS: BASOPHILS # (AUTO) 0.02 x10^3/uL (0-0.1); BASOPHILS % (AUTO) 0 % (0-1); EOSINOPHILS % (AUTO) 0 % (1-7); LYMPHOCYTES # (AUTO) 0.82 x10^3/uL (1-3.4); LYMPHOCYTES % (AUTO) 5 % (22-44); MD SCAN; MONOCYTES # (AUTO) 0.47 x10^3/uL (0.2-0.8); MONOCYTES % (AUTO) 3 % (2-9); NEUTROPHILS # (AUTO) 16.27 x10^3/uL (1.8-6.8); NEUTROPHILS % (AUTO) 93 % (42-75)
[2019-06-29 06:12] LABS: ALANINE AMINOTRANSFERASE 73 U/L (12-78); ALBUMIN 2.1 g/dL (3.4-5.0); ALKALINE PHOSPHATASE 146 U/L (45-117); ANION GAP 10 mmol/L (5-15); BILIRUBIN,TOTAL 0.8 mg/dL (0.2-1.0); CALCIUM 6.8 mg/dL (8.5-10.1); CREATININE 1.32 mg/dL (0.7-1.3); TOTAL PROTEIN 6.4 g/dL (6.4-8.2)
[2019-06-29] MEDS ORDERED: SODIUM BICARBONATE 8.4% 150 MEQ in DEXTROSE 5% 1,000 ML IV SCH (07:00)
[2019-06-29] MEDS: INSULIN LISPRO 100 UNITS/ML, PEN SQ-INSULIN SCH ×4 (07:00→20:52)
[2019-06-29] MEDS: DEXTROSE 50%, 50ML SYRINGE IVPush PRN (07:54)
[2019-06-29] MEDS: VASOPRESSIN 20 UNIT in SODIUM CHLORIDE 0.9% 99 ML IV PRN (08:46)
[2019-06-29] MEDS ORDERED: SULFAMETH./TRIMETHOPRIM DS 800MG/160MG TABLET PO SCH (09:00)
[2019-06-29] MEDS: TICAGRELOR 90 MG TABLET PO/NG SCH ×2 (09:14→20:53)
[2019-06-29] MEDS: SODIUM CHLORIDE FLUSH 10ML SYR IVF SCH ×2 (09:14→20:52)
[2019-06-29] MEDS: ASPIRIN 81 MG TABLET CHEW PO/NG SCH (09:15)
[2019-06-29] MEDS: ATORVASTATIN 80 MG TABLET PO/NG SCH (09:15)
[2019-06-29] MEDS: CEFTAROLINE 600 MG in SODIUM CHLORIDE 0.9% 100 ML IV SCH ×2 (09:15→20:52)
[2019-06-29] MEDS ORDERED: SODIUM BICARB 8.4%, 50ML SYRINGE ONE ×2 (10:34→16:30)
[2019-06-29] MEDS: ENOXAPARIN 40 MG/0.4 ML SQ SCH (10:43)
[2019-06-29] MEDS ORDERED: POTASSIUM CHLORIDE PMX 100 ML IV ONE ×4 (11:30→22:30)
[2019-06-29] MEDS: VECURONIUM 10 MG IVPush PRN (14:04)
[2019-06-29] MEDS ORDERED: SODIUM BICARBONATE 1 MEQ/ML, 50ML VIAL ONE (16:30)
[2019-06-29] MEDS: CALCIUM CHLORIDE 13.6 MEQ in SODIUM CHLORIDE 0.9% 100 ML IVPB PRN (16:45)
[2019-06-29] MEDS: MAGNESIUM SULFATE 1 GM in DEXTROSE 5% 100 ML IVPB PRN (18:17)
[2019-06-29] MEDS: SODIUM BICARBONATE 8.4% 150 MEQ in DEXTROSE 5% 1,000 ML IV SCH (19:45)
[2019-06-30] MEDS: SULFAMETH IV SCH ×4 (00:22→18:43)
[2019-06-30] MEDS: SODIUM CHLORIDE IV SCH ×4 (00:22→18:43)
[2019-06-30] MEDS: TRIMETHOPRIM IV SCH ×4 (00:22→18:43)
[2019-06-30] MEDS: ARTIFICIAL TEARS OINT 3.5 GM EACHEYE SCH ×3 (00:23→23:02)
[2019-06-30] MEDS: BUSPIRONE 10 MG TABLET NG SCH ×3 (00:23→16:03)
[2019-06-30] MEDS: FAMOTIDINE 20 MG/2 ML IV SCH ×2 (00:23→13:02)
[2019-06-30] MEDS: PROPOFOL 100 ML IV PRN ×3 (00:24→17:40)
[2019-06-30] MEDS: VASOPRESSIN 20 UNIT in SODIUM CHLORIDE 0.9% 99 ML IV PRN (01:07)
[2019-06-30] MEDS: KSCALE TO 4.0 IV SCH ×6 (02:00→22:00)
[2019-06-30] MEDS: ALBUTEROL/IPRATROPIUM 2.5MG/0.5MG, 3 ML INLINE SCH ×6 (02:00→22:20)
[2019-06-30] MEDS ORDERED: POTASSIUM CHLORIDE PMX 100 ML IV ONE ×3 (02:30→10:30)
[2019-06-30 03:55] LABS: BASOPHILS % (AUTO) 0 % (0-1); EOSINOPHILS # (AUTO) 0.02 x10^3/uL (0-0.4); EOSINOPHILS % (AUTO) 0 % (1-7); LYMPHOCYTES # (AUTO) 0.53 x10^3/uL (1-3.4); LYMPHOCYTES % (AUTO) 5 % (22-44); MD NO; MEAN CORPUSCULAR HEMOGLOBIN 28.2 pg (27.5-34.5); MEAN CORPUSCULAR HGB CONC 33.1 g/dL (33.2-36.2); MEAN CORPUSCULAR VOLUME 85.2 fL (81-97); MEAN PLATELET VOLUME 8.1 fL (7.4-10.4); MONOCYTES # (AUTO) 0.19 x10^3/uL (0.2-0.8); MONOCYTES % (AUTO) 2 % (2-9); NEUTROPHILS # (AUTO) 10.56 x10^3/uL (1.8-6.8); NEUTROPHILS % (AUTO) 93 % (42-75); PLATELET COUNT 183 x10^3/uL (130-400); RED BLOOD COUNT 3.81 x10^6/uL (4.38-5.82); RED CELL DISTRIBUTION WIDTH 14.4 % (9.4-14.8)
[2019-06-30 03:58] LABS: ANION GAP 9 mmol/L (5-15); CALCIUM 6.2 mg/dL (8.5-10.1); CHLORIDE 112 mmol/L (98-107); CREATININE 1.28 mg/dL (0.7-1.3)
[2019-06-30 04:00] VITALS: BP 133/81
[2019-06-30] MEDS: SODIUM BICARBONATE 8.4% 150 MEQ in DEXTROSE 5% 1,000 ML IV SCH (05:34)
[2019-06-30] MEDS: INSULIN LISPRO 100 UNITS/ML, PEN SQ-INSULIN SCH ×4 (05:35→21:00)
[2019-06-30] MEDS ORDERED: SODIUM BICARBONATE 8.4% 150 MEQ in DEXTROSE 5% 1,000 ML IV SCH (07:00)
[2019-06-30] MEDS: SODIUM CHLORIDE FLUSH 10ML SYR IVF SCH ×2 (08:52→21:05)
[2019-06-30] MEDS: methylPREDNISolone SOD SUCC 40 MG/ML IVPush SCH (08:52)
[2019-06-30] MEDS: ATORVASTATIN 80 MG TABLET PO/NG SCH (08:53)
[2019-06-30] MEDS: ASPIRIN 81 MG TABLET CHEW PO/NG SCH (08:54)
[2019-06-30] MEDS: CEFTAROLINE 600 MG in SODIUM CHLORIDE 0.9% 100 ML IV SCH ×2 (09:00→21:05)
[2019-06-30] MEDS: TICAGRELOR 90 MG TABLET PO/NG SCH ×2 (09:05→21:05)
[2019-06-30] MEDS: ENOXAPARIN 40 MG/0.4 ML SQ SCH (09:44)
[2019-06-30] MEDS: CALCIUM CHLORIDE 13.6 MEQ in SODIUM CHLORIDE 0.9% 100 ML IVPB PRN ×2 (10:25→16:28)
[2019-06-30] MEDS: DEXTROSE 50%, 50ML SYRINGE IVPush PRN (14:14)
[2019-06-30] MEDS: MAGNESIUM SULFATE 1 GM in DEXTROSE 5% 100 ML IVPB PRN (15:18)
[2019-06-30] MEDS: SODIUM BICARB 8.4%,50ML SYR. 150 MEQ in DEXTROSE 5% 1,000 ML IV SCH (16:47)
[2019-07-01] MEDS: TRIMETHOPRIM IV SCH ×4 (00:59→18:30)
[2019-07-01] MEDS: SODIUM CHLORIDE IV SCH ×4 (00:59→18:30)
[2019-07-01] MEDS: SULFAMETH IV SCH ×4 (00:59→18:30)
[2019-07-01] MEDS: FAMOTIDINE 20 MG/2 ML IV SCH ×2 (01:07→12:12)
[2019-07-01] MEDS: BUSPIRONE 10 MG TABLET NG SCH (01:07)
[2019-07-01] MEDS: KSCALE TO 4.0 IV SCH ×3 (02:00→08:55)
[2019-07-01] MEDS: ALBUTEROL/IPRATROPIUM 2.5MG/0.5MG, 3 ML INLINE SCH ×6 (02:25→22:00)
[2019-07-01 04:55] LABS: MEAN CORPUSCULAR HEMOGLOBIN 28.8 pg (27.5-34.5); MEAN CORPUSCULAR HGB CONC 33.9 g/dL (33.2-36.2); MEAN CORPUSCULAR VOLUME 84.8 fL (81-97); MEAN PLATELET VOLUME 8.6 fL (7.4-10.4); PLATELET COUNT 159 x10^3/uL (130-400); RED BLOOD COUNT 3.38 x10^6/uL (4.38-5.82); RED CELL DISTRIBUTION WIDTH 14.3 % (9.4-14.8)
[2019-07-01 05:03] LABS: ANION GAP 8 mmol/L (5-15); CALCIUM 6.8 mg/dL (8.5-10.1); CHLORIDE 110 mmol/L (98-107)
[2019-07-01 05:05] LABS: CREATININE 1.77 mg/dL (0.7-1.3); TRIGLYCERIDES 140 mg/dL (50-200)
[2019-07-01 05:46] LABS: BASOPHILS % (AUTO) 0 % (0-1); EOSINOPHILS % (AUTO) 0 % (1-7); LYMPHOCYTES # (AUTO) 0.59 x10^3/uL (1-3.4); LYMPHOCYTES % (AUTO) 5 % (22-44); MD SCAN; MONOCYTES # (AUTO) 0.04 x10^3/uL (0.2-0.8); MONOCYTES % (AUTO) 0 % (2-9); NEUTROPHILS # (AUTO) 11.23 x10^3/uL (1.8-6.8); NEUTROPHILS % (AUTO) 95 % (42-75)
[2019-07-01] MEDS: INSULIN LISPRO 100 UNITS/ML, PEN SQ-INSULIN SCH (06:13)
[2019-07-01] MEDS: ARTIFICIAL TEARS OINT 3.5 GM EACHEYE SCH (06:14)
[2019-07-01] MEDS: NOREPINEPHRINE 8 MG in SODIUM CHLORIDE 0.9% 242 ML IV PRN (06:14)
[2019-07-01] MEDS: METRONIDAZOLE PMX 500MG/100ML 100 ML IV SCH ×3 (07:43→23:14)
[2019-07-01] MEDS: SODIUM CHLORIDE FLUSH 10ML SYR IVF SCH ×2 (07:43→21:40)
[2019-07-01] MEDS: ATORVASTATIN 80 MG TABLET PO/NG SCH (07:44)
[2019-07-01] MEDS: methylPREDNISolone SOD SUCC 40 MG/ML IVPush SCH (07:44)
[2019-07-01] MEDS: ASPIRIN 81 MG TABLET CHEW PO/NG SCH (07:44)
[2019-07-01] MEDS: TICAGRELOR 90 MG TABLET PO/NG SCH ×2 (07:45→21:41)
[2019-07-01] MEDS: SODIUM BICARB 8.4%,50ML SYR. 150 MEQ in DEXTROSE 5% 1,000 ML IV SCH (07:46)
[2019-07-01] MEDS: CEFTAROLINE 600 MG in SODIUM CHLORIDE 0.9% 100 ML IV SCH ×2 (07:48→21:41)
[2019-07-01] MEDS: ENOXAPARIN 40 MG/0.4 ML SQ SCH (08:55)
[2019-07-01] MEDS ORDERED: AZITHROMYCIN 600 MG TABLET PO SCH (09:00)
[2019-07-01] MEDS ORDERED: [UNRECOGNIZED DRUG - REMARK] MC SCH (09:30)
[2019-07-01] MEDS: FUROSEMIDE 100 MG in SODIUM CHLORIDE 0.9% 90 ML IV PRN ×2 (09:42→23:15)
[2019-07-01] MEDS: KSCALE TO 4.0 PO SCH ×3 (10:00→22:00)
--- NOTE | 2019-07-01 11:17 | NUR ---
TF GOAL: w/ propofol: PROMOTE @ 85ML/HR off propofol: PROMOTE @ 95ML/HR
[2019-07-01] MEDS: PROPOFOL 100 ML IV PRN ×2 (12:13→21:42)
[2019-07-01] MEDS: FENTANYL PF 100 MCG/2ML IVPush PRN (15:04)
[2019-07-02] MEDS: TRIMETHOPRIM IV SCH ×2 (00:53→06:24)
[2019-07-02] MEDS: SULFAMETH IV SCH ×2 (00:53→06:24)
[2019-07-02] MEDS: SODIUM CHLORIDE IV SCH ×2 (00:53→06:24)
[2019-07-02] MEDS: FAMOTIDINE 20 MG/2 ML IV SCH ×2 (01:00→12:07)
[2019-07-02] MEDS: ALBUTEROL/IPRATROPIUM 2.5MG/0.5MG, 3 ML INLINE SCH ×4 (02:40→14:20)
[2019-07-02] MEDS: KSCALE TO 4.0 PO SCH ×3 (04:00→16:00)
[2019-07-02 04:36] LABS: BASOPHILS # (AUTO) 0.02 x10^3/uL (0-0.1); BASOPHILS % (AUTO) 0 % (0-1); EOSINOPHILS % (AUTO) 0 % (1-7); LYMPHOCYTES # (AUTO) 0.44 x10^3/uL (1-3.4); LYMPHOCYTES % (AUTO) 4 % (22-44); MD NO; MEAN CORPUSCULAR HEMOGLOBIN 28.7 pg (27.5-34.5); MEAN CORPUSCULAR HGB CONC 34.1 g/dL (33.2-36.2); MEAN CORPUSCULAR VOLUME 84.4 fL (81-97); MEAN PLATELET VOLUME 8.9 fL (7.4-10.4); MONOCYTES # (AUTO) 0.19 x10^3/uL (0.2-0.8); MONOCYTES % (AUTO) 2 % (2-9); NEUTROPHILS # (AUTO) 10.62 x10^3/uL (1.8-6.8); NEUTROPHILS % (AUTO) 94 % (42-75); PLATELET COUNT 158 x10^3/uL (130-400); RED BLOOD COUNT 3.23 x10^6/uL (4.38-5.82); RED CELL DISTRIBUTION WIDTH 14.2 % (9.4-14.8)
[2019-07-02 04:43] LABS: ANION GAP 8 mmol/L (5-15); CALCIUM 6.3 mg/dL (8.5-10.1); CHLORIDE 109 mmol/L (98-107)
[2019-07-02] MEDS: PROPOFOL 100 ML IV PRN (05:46)
[2019-07-02] MEDS: ATORVASTATIN 80 MG TABLET PO/NG SCH (07:20)
[2019-07-02] MEDS: ASPIRIN 81 MG TABLET CHEW PO/NG SCH (07:21)
[2019-07-02] MEDS: methylPREDNISolone SOD SUCC 40 MG/ML IVPush SCH (07:21)
[2019-07-02] MEDS: METRONIDAZOLE PMX 500MG/100ML 100 ML IV SCH (07:21)
[2019-07-02] MEDS: TICAGRELOR 90 MG TABLET PO/NG SCH (07:21)
[2019-07-02] MEDS: SODIUM CHLORIDE FLUSH 10ML SYR IVF SCH (07:22)
[2019-07-02] MEDS: CEFTAROLINE 600 MG in SODIUM CHLORIDE 0.9% 100 ML IV SCH (09:43)
[2019-07-02] MEDS: ENOXAPARIN 40 MG/0.4 ML SQ SCH (09:43)
[2019-07-02] MEDS ORDERED: SULFAMETH/TRIMETHOPRIM 40-8MG/ML SUSP. NG SCH (12:30)
[2019-07-02] MEDS ORDERED: MORPHINE SULFATE 4 MG/ML, 1ML ONE (16:35)
[2019-07-02] MEDS ORDERED: LORazepam 2 MG/ML, 1ML ONE (16:36)
[2019-07-02] MEDS ORDERED: LORazepam 2 MG/ML, 1ML IV ONE (17:00)
[2019-07-02] MEDS ORDERED: SCOPOLAMINE 1MG PATCH TD SCH (17:00)
[2019-07-02] MEDS ORDERED: MORPHINE SULFATE 4 MG/ML, 1ML IV ONE ×2 (17:00)
[2019-07-02] MEDS ORDERED: ONDANSETRON 2MG/ML, 2ML IV PRN (17:00)
[2019-07-02] MEDS ORDERED: LORazepam 2 MG/ML, 1ML IV PRN (17:00)
[2019-07-02] MEDS ORDERED: MORPHINE 30MG/30ML PCA.SYR IV SCH (17:00)
[2019-07-02] MEDS ORDERED: MORPHINE SULFATE 4 MG/ML, 1ML IV PRN (17:00)
[2019-07-03] MEDS ORDERED: FUROSEMIDE 100 MG in SODIUM CHLORIDE 0.9% 90 ML IV PRN (09:00)
== END 2019-07-03 07:10 | disposition expired | DRG 175 ==
LOC: ED 19:17 → SUATTDRO 19:34 → ICU 20:19 → 3N 07-03 06:10
PROVIDERS: ADMIT Internal Medicine; ATTEND Internal Medicine
PROC: 02703DZ Dilation of Coronary Artery, One Artery with Intraluminal Device, Percutaneous Approach (ICD-10-PCS; principal; 2019-06-28)
PROC: 0T9B70Z Drainage of Bladder with Drainage Device, Via Natural or Artificial Opening (ICD-10-PCS; 2019-06-28)
PROC: 4A023N7 Measurement of Cardiac Sampling and Pressure, Left Heart, Percutaneous Approach (ICD-10-PCS; 2019-06-28)
PROC: B211YZZ Fluoroscopy of Multiple Coronary Arteries using Other Contrast (ICD-10-PCS; 2019-06-28)
PROC: B215YZZ Fluoroscopy of Left Heart using Other Contrast (ICD-10-PCS; 2019-06-28)
PROC: 5A12012 Performance of Cardiac Output, Single, Manual (ICD-10-PCS; 2019-06-28)
PROC: 5A1945Z Respiratory Ventilation, 24-96 Consecutive Hours (ICD-10-PCS; 2019-06-29)
PROC: 0BH17EZ Insertion of Endotracheal Airway into Trachea, Via Natural or Artificial Opening (ICD-10-PCS; 2019-06-29)
PROC: 02HV33Z Insertion of Infusion Device into Superior Vena Cava, Percutaneous Approach (ICD-10-PCS; 2019-06-29)
PROC: B548ZZA Ultrasonography of Superior Vena Cava, Guidance (ICD-10-PCS; 2019-06-29)
PROC: 03HY32Z Insertion of Monitoring Device into Upper Artery, Percutaneous Approach (ICD-10-PCS; 2019-06-29)
PROC: 4A133B1 Monitoring of Arterial Pressure, Peripheral, Percutaneous Approach (ICD-10-PCS; 2019-06-29)
PROC: 4A133J1 Monitoring of Arterial Pulse, Peripheral, Percutaneous Approach (ICD-10-PCS; 2019-06-29)
DX: I49.01 Ventricular fibrillation (principal); J96.01 Acute respiratory failure with hypoxia; R57.0 Cardiogenic shock; J69.0 Pneumonitis due to inhalation of food and vomit; E43 Unspecified severe protein-calorie malnutrition; I50.23 Acute on chronic systolic (congestive) heart failure; G92 Toxic encephalopathy; C21.0 Malignant neoplasm of anus, unspecified; B95.0 Streptococcus, group A, as the cause of diseases classified elsewhere; E88.09 Other disorders of plasma-protein metabolism, not elsewhere classified; I47.2 Ventricular tachycardia; Z99.11 Dependence on respirator [ventilator] status; F15.20 Other stimulant dependence, uncomplicated; D63.8 Anemia in other chronic diseases classified elsewhere; I25.5 Ischemic cardiomyopathy; L98.429 Non-pressure chronic ulcer of back with unspecified severity; Z51.5 Encounter for palliative care; R73.9 Hyperglycemia, unspecified; M48.061 Spinal stenosis, lumbar region without neurogenic claudication; I25.10 Atherosclerotic heart disease of native coronary artery without angina pectoris; Z21 Asymptomatic human immunodeficiency virus [HIV] infection status; Z79.2 Long term (current) use of antibiotics; Z85.048 Personal history of other malignant neoplasm of rectum, rectosigmoid junction, and anus; Z87.891 Personal history of nicotine dependence; Z91.19 Patient's noncompliance with other medical treatment and regimen; Z68.21 Body mass index [BMI] 21.0-21.9, adult; Z88.2 Allergy status to sulfonamides; Z66 Do not resuscitate
CPT/HCPCS: 36415; 36600; 70450; 71045; 80048; 80053; 80061; 80074; 80307; 81001; 82330; 82803; 82962; 83605; 83615; 83735; 83880; 84100; 84132; 84443; 84478; 84484; 85025; 85610; 85730; 86361; 86592; 87070; 87077; 87081; 87086; 87147; 87186; 87205; 87536; 92950; 93005; 93306; 93458; 94002; 94003; 94640; 96374; 99156; 99157; C1760; C1769; C1876; C1894; G0378; J0583; J0712; J1265; J1644; J1650; J1815; J1940; J2250; J2270; J2704; J3010; J3475; J3480; J7060; J7070; C1725; C1887; J0282; J2060; J2920; J3490; J7030; J7040; J7050; Q9967